=== PATIENT | male | born 1955 | race Caucasian/White ===

== ENCOUNTER → 2017-08-25 | Day surgery (SDC) | payer OTHER ==
[~2017-08-25] MED LIST: LIDOCAINE 1% W/EPI 1:200,000 MPF 30ML SQ ONE
--- NOTE | 2017-08-25 20:53 | Operative Note ---
DATE OF SURGERY: 08/25/2017 PREOPERATIVE DIAGNOSIS: Left carpal tunnel syndrome. POSTOPERATIVE DIAGNOSIS: Left carpal tunnel syndrome. PROCEDURE: Left carpal tunnel release. STAFF SURGEON: Shubham Lopez MD ANESTHESIA: Local. PREPARATION: ChloraPrep. INDIVIDUAL CONSIDERATIONS: None. PROCEDURE: The patient was taken to the Operating Room and placed supine on the operating table. His left arm was prepped and draped in the usual fashion. The patient had 1% Lidocaine with Epinephrine infiltrated along the longitudinal wrist crease volarly. The limb was then elevated and the tourniquet was inflated to 250 mmHg. The patient had an incision along the longitudinal wrist crease volarly, just stopping short of the flexion crease at a 45 degree angle ulnarly. Sharp dissection carried down through skin and subcutaneous tissue. Small veins were coagulated with a Bovie. Sharp dissection carried through the palmar fascia, through the small adductor brevis, and then through the transverse metacarpal fascia distally to the superficial arch and recurrent branch and proximally to the antebrachial fascia. There were no tumors. The median nerve was obviously reddened in an hourglass configuration. The tourniquet was let down and hemostasis was obtained with a Bovie and compression. The skin was approximated with 4-0 nylon in a vertical mattress fashion and a sterile Bulkee compressive hand dressing was applied. The patient tolerated the procedure well. Needle and sponge counts were correct. Estimated blood loss was minimal and he was taken back to Recovery in good condition. There were no complications. cc: Dr. Guzman Kelley JOB NUMBER: [id number] MTDD
== END | disposition home or self-care (01) ==
LOC: SUR 07:47
PROVIDERS: ATTEND Orthopaedic Surgery
DX: G56.02 Carpal tunnel syndrome, left upper limb (principal)